=== PATIENT | female | born 1955 | race Caucasian/White ===

== ENCOUNTER 2022-12-25 13:02 | Emergency (ER) | payer OTHER, SELFPAY ==
[2022-12-25] VITALS (22 sets, daily range): BP systolic 82–210; BP diastolic 49–175; PULSE 27–36; RESP 12–31; TEMP 36.8; O2SAT 93–100; BMI 26.4
--- NOTE | 2022-12-25 13:23 | ED.VIS.DYS ---
HPI <CHRISTY Trinidad - Last Filed: 12/25/22 18:37> History of Present Illness Chief Complaint: Shortness of Breath Narrative Narrative: 67-year-old female with PMH of hypothyroidism presents with 1 month of dyspnea on exertion. She feels like its been worsening and she feels winded after walking about 20 feet. She has occasional chest tightness with it but no pain. Symptoms resolve if she rests. She has been helping her family member move and it seemed worse today prompting her to come in. She denies cardiopulmonary history. The only medication she takes is Synthroid. PFSH <CHRISTY Trinidad - Last Filed: 12/25/22 18:37> [facility] Medical History (Updated 12/25/22 @ 14:37 by CHRISTY Trinidad) Asthma Bronchitis Pneumonia Home Medications levothyroxine 75 mcg tablet (Euthyrox) 75 mcg PO DAILY 12/25/22 [History Last Taken 12/25/22] Allergy/AdvReac Type Severity Reaction Status Date / Time gluten Allergy Mild Upset Verified 12/25/22 13:06 Stomach Social History Smoking Status: Never smoker ROS <CHRISTY Trinidad - Last Filed: 12/25/22 18:37> ROS ED ROS Narrative Constitutional: Negative for fever, chills, malaise. CVS: Negative for palpitations, chest pain, syncope. Respiratory: Positive for shortness of breath. Negative for cough, orthopnea. GI: Negative for abdominal pain, nausea, vomiting, melena, hematochezia. Neuro: Negative for headache. EXAM <CHRISTY Trinidad - Last Filed: 12/25/22 18:37> Physical Exam Narrative Exam Narrative: CONST: Patient sitting in no acute distress. EYES: Normal inspection. NECK: Normal inspection. RESP: No respiratory distress, CTAB. CVS: Bradycardic regular rhythm, no murmur, no gallop. ABD: Soft and nontender, no guarding or rebound, nondistended. SKIN: Color normal, no rash, warm, dry, intact. EXTREMITIES: Normal appearance, no pedal edema. NEURO: Oriented x4. PSYCH: Normal affect. Const Vital Signs: 12/25/22 13:04 12/25/22 13:11 12/25/22 13:15 Temperature 98.3 F Temperature Source Temporal Pulse Rate 32 L 30 L Respiratory Rate 16 12 Respiratory Effort Normal Non-Labored Respiratory Depth Normal Respiratory Pattern Normal Blood Pressure 82/64 L 158/67 H Blood Pressure Mean 70 97 Pulse Ox 100 95 Oxygen Delivery Method Room Air Room Air Room Air 12/25/22 13:17 12/25/22 13:31 12/25/22 13:34 Temperature Temperature Source Pulse Rate 35 L 31 L Respiratory Rate 31 H 21 H Respiratory Effort Normal Non-Labored Respiratory Depth Respiratory Pattern Blood Pressure 210/175 H 195/49 H Blood Pressure Mean 186 97 Pulse Ox 95 93 Oxygen Delivery Method Room Air Room Air 12/25/22 13:43 12/25/22 13:44 12/25/22 13:46 Temperature Temperature Source Pulse Rate 30 L Respiratory Rate 19 H Respiratory Effort Respiratory Depth Respiratory Pattern Blood Pressure 188/68 H 178/64 H 176/54 H Blood Pressure Mean 108 102 94 Pulse Ox 93 Oxygen Delivery Method Room Air 12/25/22 14:12 12/25/22 14:39 12/25/22 14:54 Temperature Temperature Source Pulse Rate 31 L 28 L 28 L Respiratory Rate 14 20 H 14 Respiratory Effort Respiratory Depth Respiratory Pattern Blood Pressure 162/54 H Blood Pressure Mean 90 Pulse Ox 96 96 96 Oxygen Delivery Method Room Air Room Air Room Air 12/25/22 15:12 12/25/22 15:42 12/25/22 15:53 Temperature Temperature Source Pulse Rate 28 L 27 L 28 L Respiratory Rate 13 19 H 18 Respiratory Effort Respiratory Depth Respiratory Pattern Blood Pressure 132/64 H 139/65 H 152/58 H Blood Pressure Mean 86 89 89 Pulse Ox 97 96 96 Oxygen Delivery Method Room Air Room Air Room Air 12/25/22 16:08 12/25/22 17:07 12/25/22 17:12 Temperature Temperature Source Pulse Rate 27 L 28 L 36 L Respiratory Rate 14 23 H 15 Respiratory Effort Respiratory Depth Respiratory Pattern Blood Pressure 162/64 H Blood Pressure Mean 96 Pulse Ox 96 95 96 Oxygen Delivery Method Room Air Room Air Room Air <Dr. Moisés Garibay MD - Last Filed: 12/25/22 14:56> Physical Exam Const Vital Signs: 12/25/22 13:04 12/25/22 13:11 12/25/22 13:15 Temperature 98.3 F Temperature Source Temporal Pulse Rate 32 L 30 L Respiratory Rate 16 12 Respiratory Effort Normal Non-Labored Respiratory Depth Normal Respiratory Pattern Normal Blood Pressure 82/64 L 158/67 H Blood Pressure Mean 70 97 Pulse Ox 100 95 Oxygen Delivery Method Room Air Room Air Room Air 12/25/22 13:17 12/25/22 13:31 12/25/22 13:34 Temperature Temperature Source Pulse Rate 35 L 31 L Respiratory Rate 31 H 21 H Respiratory Effort Normal Non-Labored Respiratory Depth Respiratory Pattern Blood Pressure 210/175 H 195/49 H Blood Pressure Mean 186 97 Pulse Ox 95 93 Oxygen Delivery Method Room Air Room Air 12/25/22 13:43 12/25/22 13:44 12/25/22 13:46 Temperature Temperature Source Pulse Rate 30 L Respiratory Rate 19 H Respiratory Effort Respiratory Depth Respiratory Pattern Blood Pressure 188/68 H 178/64 H 176/54 H Blood Pressure Mean 108 102 94 Pulse Ox 93 Oxygen Delivery Method Room Air 12/25/22 14:12 12/25/22 14:39 12/25/22 14:54 Temperature Temperature Source Pulse Rate 31 L 28 L 28 L Respiratory Rate 14 20 H 14 Respiratory Effort Respiratory Depth Respiratory Pattern Blood Pressure 162/54 H Blood Pressure Mean 90 Pulse Ox 96 96 96 Oxygen Delivery Method Room Air Room Air Room Air 12/25/22 15:12 12/25/22 15:42 12/25/22 15:53 Temperature Temperature Source Pulse Rate 28 L 27 L 28 L Respiratory Rate 13 19 H 18 Respiratory Effort Respiratory Depth Respiratory Pattern Blood Pressure 132/64 H 139/65 H 152/58 H Blood Pressure Mean 86 89 89 Pulse Ox 97 96 96 Oxygen Delivery Method Room Air Room Air Room Air 12/25/22 16:08 12/25/22 17:07 12/25/22 17:12 Temperature Temperature Source Pulse Rate 27 L 28 L 36 L Respiratory Rate 14 23 H 15 Respiratory Effort Respiratory Depth Respiratory Pattern Blood Pressure 162/64 H Blood Pressure Mean 96 Pulse Ox 96 95 96 Oxygen Delivery Method Room Air Room Air Room Air MDM <CHRISTY Trinidad - Last Filed: 12/25/22 18:37> [facility] Narrative Medical decision making narrative: History gathered from: Patient and spouse Patient presents with dyspnea on exertion x1 month. She appears well and nontoxic. Her heart rate is 30 but the rest of her vitals are stable. BP is 162/54. On my interpretation of bedside telemetry heart rate is 30 and every other P wave is not conducted. EKG appears to be second-degree heart block possibly Mobitz type II. CBC shows white count of 11.1, hemoglobin 14.1, BMP shows normal electrolytes, creatinine 1.47. Troponin is 16 ruling out ACS. TSH WNL. CXR shows small bilateral pleural effusions. She is 96% or above on room air with no clinical signs of fluid overload. I discussed the case with Dr. Louis who recommended transfer since we do not have capability to place a pacemaker this weekend. Multiple hospitals have been contacted for transfer. I spoke with [facility] physician Dr. Dumont at 4:48 pm who recommended she go to the telemetry floor. I am awaiting the hospitalist. She was accepted by the hospitalist Dr. Handley and is awaiting transport. She remains stable and has not required intervention. Differential: Mobitz type II heart block, electrolyte abnormality, ACS I have personally performed a face to face assessment of the patient and have reviewed the TOI Note. I performed a substantive portion of the visit including all aspects of the following. My pemberton findings include: History is [67-year-old female with exertional dyspnea over the last month. No cardiac history. Denies any chest pain. She only notices when she is exerting herself or walking steps. She is on no cardiac meds. She does have a history of hypothyroidism.] Exam is [C 7-year-old female no acute distress. Vital signs are stable except her blood pressure is 176/54 but heart rate is only 30. On the monitor she is dropping every other beat. She has consistent P waves but she loses a QRS every other beat. HEENT exam unremarkable. Neck nontender no JVD. Lungs clear equal symmetrical bilaterally. Heart regular rhythm. Rates only 30. No murmur. Abdomen soft nontender. Moving all 4 extremities. Calves are nontender without edema or cords.] Medical Decision Making [61-year-old female with exertional dyspnea that has bradycardia that looks like a Mobitz type I on the EKG. She drops every other QRS complex but she is consistent P waves and the SD interval remains consistent but again she is dropping every other beat. I will speak to cardiology. She will need evaluation possibly for a pacemaker. If she can stay here we will admit her here if there is no one available for that evaluation then should be transferred.] Other additions or changes: [None] Lab Data Attestation: I reviewed the patient's lab results. Labs: Laboratory Results - last 24 hr 12/25/22 13:23 WBC 11.1 H RBC 4.75 Hgb 14.1 Hct 43.3 MCV 91.2 MCH 29.7 MCHC 32.6 RDW Std Deviation 46.2 H RDW Coeff of Jessica 13.7 Plt Count 297 MPV 10.7 Immature Gran % (Auto) 0.400 Neut % (Auto) 66.5 Lymph % (Auto) 24.7 [place] % (Auto) 6.9 Eos % (Auto) 1.0 Baso % (Auto) 0.5 Absolute Neuts (auto) 7.4 Absolute Lymphs (auto) 2.73 Nucleated RBC % 0 Sodium 142 Potassium 4.4 Chloride 114 H Carbon Dioxide 22.0 Anion Gap 6 BUN 34 H Creatinine 1.47 H Estim Creat Clear Calc 35.31 Est GFR (MDRD) Af Amer 46 L Est GFR (MDRD) Non-Af 38 L BUN/Creatinine Ratio 23.1 H Glucose 128 H Calcium 8.9 Troponin I High Sens 16 TSH 2.16 Radiography Diagnostic Testing: Clinical Impression(s) from Imaging Studies Chest X-Ray 12/25/22 13:54 IMPRESSION: Bilateral pleural effusions, left greater than right cannot exclude associated bibasilar consolidation. Cardiomegaly. Electronically Signed: Priscilla Ibarra MD at 14:28 EDT , <Dr. Moisés Garibay MD - Last Filed: 12/25/22 14:56> [facility] Narrative Medical decision making narrative: History gathered from: Patient and spouse Patient presents with dyspnea on exertion x1 month. She appears well and nontoxic. Vital signs are stable?BP . On my interpretation of bedside telemetry heart rate is 30 and every other P wave is not conducted. EKG appears to be second-degree heart block likely Mobitz type II. Every other P wave is nonconducted with rate of 30 bpm. I have personally performed a face to face assessment of the patient and have reviewed the TOI Note. I performed a substantive portion of the visit including all aspects of the following. My pemberton findings include: History is [67-year-old female with exertional dyspnea over the last month. No cardiac history. Denies any chest pain. She only notices when she is exerting herself or walking steps. She is on no cardiac meds. She does have a history of hypothyroidism.] Exam is [C 7-year-old female no acute distress. Vital signs are stable except her blood pressure is 176/54 but heart rate is only 30. On the monitor she is dropping every other beat. She has consistent P waves but she loses a QRS every other beat. HEENT exam unremarkable. Neck nontender no JVD. Lungs clear equal symmetrical bilaterally. Heart regular rhythm. Rates only 30. No murmur. Abdomen soft nontender. Moving all 4 extremities. Calves are nontender without edema or cords.] Medical Decision Making [61-year-old female with exertional dyspnea that has bradycardia that looks like a Mobitz type I on the EKG. She drops every other QRS complex but she is consistent P waves and the SD interval remains consistent but again she is dropping every other beat. I will speak to cardiology. She will need evaluation possibly for a pacemaker. If she can stay here we will admit her here if there is no one available for that evaluation then should be transferred.] Other additions or changes: [None] History & Record Review Discussion w/independent historian: Patient and Family Lab Data Lab results narrative: CBC unremarkable. White count 11.1. H&H 14 and 43. Electrolytes unremarkable. Potassium of 4.4. Normal gap of 6. BUN 34 creatinine 1.47. Troponin is normal at 16. TSH is normal at 2.1. Chest x-ray shows bilateral small pleural effusions left greater than right. Labs: Laboratory Results - last 24 hr 12/25/22 13:23 WBC 11.1 H RBC 4.75 Hgb 14.1 Hct 43.3 MCV 91.2 MCH 29.7 MCHC 32.6 RDW Std Deviation 46.2 H RDW Coeff of Jessica 13.7 Plt Count 297 MPV 10.7 Immature Gran % (Auto) 0.400 Neut % (Auto) 66.5 Lymph % (Auto) 24.7 [place] % (Auto) 6.9 Eos % (Auto) 1.0 Baso % (Auto) 0.5 Absolute Neuts (auto) 7.4 Absolute Lymphs (auto) 2.73 Nucleated RBC % 0 Sodium 142 Potassium 4.4 Chloride 114 H Carbon Dioxide 22.0 Anion Gap 6 BUN 34 H Creatinine 1.47 H Estim Creat Clear Calc 35.31 Est GFR (MDRD) Af Amer 46 L Est GFR (MDRD) Non-Af 38 L BUN/Creatinine Ratio 23.1 H Glucose 128 H Calcium 8.9 Troponin I High Sens 16 TSH 2.16 Radiography Chest X-Ray - ED: 1 View, Read by ED Physician, Heart, Lungs, Mediastinum, Bony Structures, Chronic Changes, Right Effusion and Left Effusion Diagnostic Testing: Clinical Impression(s) from Imaging Studies Chest X-Ray 12/25/22 13:54 IMPRESSION: Bilateral pleural effusions, left greater than right cannot exclude associated bibasilar consolidation. Cardiomegaly. Electronically Signed: Priscilla Ibarra MD at 14:28 EDT , Chest x-ray, portable, single view interpreted by myself and the radiologist shows small bilateral pleural effusions. Left greater than right. Normal cardiac silhouette. Normal mediastinum. Discharge Plan Triage Chief Complaint: Shortness of Breath ED Midlevel Provider: Jo Kidd ED Provider: Moisés Garibay Dx/Rx/DC Orders Clinical Impression: Bradycardia, Heart block AV second degree Prescriptions: No Action levothyroxine [Euthyrox] 75 mcg tablet 75 mcg PO DAILY Primary Care Provider: Care Physician,No Primary Referrals: [facility] Doctor,Out of [Non-Staff] -
[2022-12-25 13:41] LABS: Absolute Lymphocyte Count 2.73 X10^3/uL (0.83-4.51); Absolute Neutrophil Count 7.4 X10^3/uL (2.0-7.7); Basophil# 0.05 X10^3/uL; Basophil% 0.5 % (0-1); Eosinophil# 0.11 X10^3/uL; Hematocrit 43.3 % (37-47); Hemoglobin 14.1 g/dL (12.0-15.0); Lymphocyte # 2.73 X10^3/ul (0.83-4.51); Lymphocyte % 24.7 % (19-41); Mean Corp Hgb Conc 32.6 g/dL (32-36); Mean Corpuscular Hgb 29.7 pg (27.0-32.0); Mean Corpuscular Volume 91.2 fL (81-99); Mean Platelet Vol. 10.7 fl (6.2-12.0); Monocyte# 0.76 X10^3/uL; Monocyte% 6.9 % (0-10); NRBC Flagged by Analyzer 0 % (0-5); Neutrophil # 7.37 X10^3/uL (2.7-7.7); Neutrophil % 66.5 % (47-70); Platelet Count 297 K/mm3 (150-450); RBC Distribution Width CV 13.7 % (11.6-14.6); RBC Distribution Width SD 46.2 fl (35.1-43.9); Red Blood Count 4.75 M/mm3 (4.2-5.4); White Blood Count 11.1 K/mm3 (4.4-11.0)
--- NOTE | 2022-12-25 13:45 | ED.RN ---
DR. KEANE AT BEDSIDE.
--- NOTE | 2022-12-25 13:52 | ED.RN ---
DR. KEANE STATES PT ABLE TO GO FOR SCANS IN RADIOLOGY NOW.
--- NOTE | 2022-12-25 13:54 | RAD_ITS ---
INDICATION: dyspnea EXAMINATION/TECHNIQUE: X-RAY - XR Chest 1 View COMPARISON: No relevant prior comparison study available FINDINGS: LINES/DEVICES: None. LUNGS: There are bilateral pleural effusions, left greater than right. MEDIASTINUM AND CARDIOVASCULAR STRUCTURES: There is cardiomegaly. BONES AND SOFT TISSUES: Unremarkable. RAD/Chest 1 View (Portable) IMPRESSION: Bilateral pleural effusions, left greater than right cannot exclude associated bibasilar consolidation. Cardiomegaly. Electronically Signed: Priscilla Ibarra MD at 14:28 EDT ,
[2022-12-25 14:05] LABS: Anion Gap 6 (5-15); BUN 34 mg/dL (7-18); BUN/Creat Ratio 23.1 RATIO (10-20); Calcium,Total 8.9 mg/dL (8.5-10.1); Chloride 114 mmol/L (98-107); Creatinine, Serum 1.47 mg/dL (0.55-1.02); EST Glomerular Filtration Rate 38 mL/min (>60); Est Glom Filt Rate - Afr Amer 46 mL/min (>60); Estimated Creatinine Clearance 35.31 ml/min; Glucose 128 mg/dL (74-106); Potassium 4.4 mmol/L (3.5-5.1); Sodium Level 142 mmol/L (136-145); Thyroid Stim Hormone (TSH) 2.16 uIU/mL (0.358-3.74); Troponin-I HS 16 pg/mL (3.0-54.0)
--- NOTE | 2022-12-25 15:29 | ED.RN ---
PER CHRISTY PRITCHARD PT ABLE TO HAVE WATER.
--- NOTE | 2022-12-25 19:41 | ED.RN ---
THIS RN CALLED REPORT TO [facility]. REPORT GIVEN TO JONATHON LAN. AT 1933.
--- NOTE | 2022-12-25 20:31 | ED.RN ---
REPORT GIVEN TO MARIELENA, CERTIFIED [facility]STER [facility] AT 2032.
--- NOTE | 2022-12-25 21:05 | ED.RN ---
PT DEPARTED FROM [facility] AT 2105. PT TALKING A &OX3.
== END 2022-12-25 21:07 | disposition short-term general hospital (02) ==
LOC: ED 13:40
PROVIDERS: Physician Assistant; Emergency Provider Emergency Medicine; Visit Provider Emergency Medicine
DX: I44.1 Atrioventricular block, second degree (principal); E03.9 Hypothyroidism, unspecified; J45.909 Unspecified asthma, uncomplicated; R00.1 Bradycardia, unspecified; Z79.890 Hormone replacement therapy
CPT/HCPCS: 71045; 80048; 84443; 84484; 85025; 93005; 99285; J7030; A4216

== ENCOUNTER → 2024-02-17 | Outpatient (CLI) | payer MEDICARE, SELFPAY ==
--- NOTE | 2024-02-17 14:36 | BI_ITS ---
MAMMOGRAPHY - BILATERAL SCREENING REASON FOR EXAM: Female, 69 years old. Routine annual screening examination. PERTINENT HISTORY: Aunt with breast cancer. TECHNIQUE: Digital bilateral breast itzel (3D mammographic acquisition) in the CC and MLO projections. 2-D mediolateral oblique (MLO) and craniocaudad (CC) views of both breasts were obtained. CAD: Full Field Digital Mammography with Computer Added Detection was performed. COMPARISON: Comparison is made with prior outside EXAMINATION dated November 17, 2021. FINDINGS: Breast Composition: There are scattered areas of fibroglandular density. There are no dominant masses or suspicious calcifications. A pacemaker battery pack is seen in the left axilla. No other significant abnormalities are identified. There has been no significant change since the prior study. BI/SCRN MAMM (CAD)W/ITZEL BILAT IMPRESSION: Stable bilateral screening mammogram. Yearly follow-up mammogram recommended. (A) ASSESSMENT CATEGORY: BIRADS Category 2: Benign. A letter regarding these results will be sent to the patient by the facility within 30 days. Approximately 10% of breast cancers are not detected by mammography. A normal mammogram should not delay biopsy of a clinically suspicious abnormality. [id number] Electronically Signed: Tremaine Portillo MD at 12:29 EDT ,
== END | disposition home or self-care (01) ==
LOC: OPBI 14:35
PROVIDERS: PCP Internal Medicine; Referring Provider Internal Medicine; Visit Provider Internal Medicine
DX: Z12.31 Encounter for screening mammogram for malignant neoplasm of breast (principal)
CPT/HCPCS: 77063; 77067